=== PATIENT | female | born 1990 | race Caucasian/White ===

== ENCOUNTER → 2020-11-24 13:51 | Outpatient (CLI) | payer OTHER, SELFPAY ==
--- NOTE | ~2020-11-24 | MR_ITS ---
EXAMINATION: MR knee RT wo con DATE: 11/24/2020 14:47 INDICATION: Sprain of the medial collateral ligament. The right knee presenting with right knee pain and swelling TECHNIQUE: Magnetic resonance imaging (MRI) of the right knee was performed without intravenous contr ast. Sequences included coronal PD-weighted FSE, coronal PD-weighted FS FSE, sagittal T2-weighted FS E, sagittal PD-weighted FS FSE and axial PD weighted fat saturated FSE. COMPARISON: None. FINDINGS: Medial compartment: Medial meniscus is normal. Articular cartilage is normal. Lateral compartment: Lateral meniscus is normal. Articular cartilage is normal. Patellofemoral compartment: Articular cartilage is normal. Ligaments and tendons: Prominent thickening and increased signal of the posterior cruciate ligament consistent with at least partial tear. Anterior cruciate ligament is normal. Partial tear involving the anterior aspect of th e proximal medial collateral ligament. The extensor mechanism is normal. The visualized medial and la teral hamstring tendons as well as the iliotibial band are normal. Fluid: Moderate-sized right knee joint effusion. No loose osteochondral bodies identified. Osseous/other: Bone marrow edema without evident fracture line at the anteromedial rim of the medial tibial plateau and at the medial and lateral margin of the posterior weightbearing medial and lateral femoral condyl es respectively. No fracture or pathologic marrow replacing process. IMPRESSION: 1. At least high-grade partial tear of the posterior cruciate ligament and partial tear involving the anterior aspect of the proximal medial collateral ligament. 2. Bone contusions at the medial tibial plateau and posterior aspect of the medial and lateral femora l condyles. 3. Moderate sized right knee joint effusion. Reviewed, dictated and finalized at location A. IMPRESSION: 1. At least high-grade partial tear of the posterior cruciate ligament and part ial tear involving the anterior aspect of the proximal medial collateral ligame nt. 2. Bone contusions at the medial tibial plateau and posterior aspect of the med ial and lateral femoral condyles. 3. Moderate sized right knee joint effusion.
--- NOTE | ~2020-11-24 | MR_ITS ---
EXAMINATION: MR knee LT wo con DATE: 11/24/2020 14:58 INDICATION: Sprain of the medial collateral ligament of the left knee presenting with left knee pain and swelling TECHNIQUE: Magnetic resonance imaging (MRI) of the left knee was performed without intravenous contra st. Sequences included coronal PD-weighted FSE, coronal PD-weighted FS FSE, sagittal T2-weighted FSE , sagittal PD-weighted FS FSE and axial PD weighted fat saturated FSE. COMPARISON: None. FINDINGS: Medial compartment: Medial meniscus is normal. Articular cartilage is normal. Lateral compartment: Lateral meniscus is normal. Articular cartilage is normal. Patellofemoral compartment: Articular cartilage is normal. Ligaments and tendons: Posterior cruciate ligament is normal. The anterior cruciate ligament appears thickened with increase d signal proximally and with subtle lax appearance to the more distal fibers which follow a shallower course than lumen stats line consistent with at least a partial and more likely complete tear of the anterior cruciate ligament. Mild soft tissue edema surrounding the proximal medial collateral ligame nt with focal thickening and increased signal at the proximal aspect of the ligament consistent with moderate grade partial tear. The fibular collateral ligament is normal. Patellar tendon is normal. Mi ld tendinopathy without discrete tear at the lateral aspect of the distal triceps tendon. The visuali zed medial and lateral hamstring tendons as well as the iliotibial band are normal. Fluid: Small left knee joint effusion. No loose osteochondral bodies identified. Osseous/other: Bone marrow edema likely related to bone contusion without discrete fracture line along the posterola teral margin of the lateral tibial plateau. No fracture or pathologic marrow replacing process. IMPRESSION: 1. At least partial and more likely complete tear of the proximal anterior cruciate ligament. 2. Moderate grade sprain/partial tear of the proximal medial collateral ligament. 3. Bone contusion along the posterolateral aspect of the lateral tibial plateau. Reviewed, dictated and finalized at location A. IMPRESSION: 1. At least partial and more likely complete tear of the proximal anterior cruc iate ligament. 2. Moderate grade sprain/partial tear of the proximal medial collateral ligamen t. 3. Bone contusion along the posterolateral aspect of the lateral tibial plateau .
== END ==
PROVIDERS: Visit Provider Internal Medicine
DX: S83.521A Sprain of posterior cruciate ligament of right knee, initial encounter (principal); X58.XXXA Exposure to other specified factors, initial encounter; M25.461 Effusion, right knee
CPT/HCPCS: 73721